=== PATIENT | male | born 1975 | race Two or more races ===

== ENCOUNTER → 2021-02-16 | Day surgery (SDC) | payer OTHER | END | disposition home or self-care (01) | LOC: ADM 02-09 15:30 → AMB-ENDOS 11:40 | PROVIDERS: ATTEND Colon & Rectal Surgery | DX: K62.1 Rectal polyp (principal); K64.8 Other hemorrhoids; Z20.822 Contact with and (suspected) exposure to COVID-19; Z12.11 Encounter for screening for malignant neoplasm of colon ==